=== PATIENT | male | born 1950 | race Caucasian/White ===

== ENCOUNTER 2021-07-23 09:34 | Observation (INO) ==
[~2021-07-23 09:34] MED LIST: ASPIRIN 325 MG TABLET PO ONE; DIAZEPAM 5 MG TABLET PO ONE; MAGNESIUM SULF RIDER 2 GM/50 ML PREMIX IV PRN; POTASSIUM CHLORIDE RIDER 10 MEQ/100 ML PREMIX IV PRN; diphenhydrAMINE CAP 25 MG CAPSULE PO ONE
[2021-07-23 10:14] LABS: Basophils % 0.8 % (0.0-0.8); Eosinophils # 0.4 10*3/uL (0.0-0.87); Eosinophils % 8.9 % (0.00-10.9); Hematocrit 48.2 VOL% (42.0-52.0); Hemoglobin 15.2 GM/DL (14.0-18.0); Immature Granulocytes % 0.4 %; Immature Granulocytes Absolute 0.02 #; Lymphocytes % 21.4 % (21.2-54.2); Mean Corpuscular HGB Conc 31.5 GM/DL (32-36); Mean Corpuscular Volume 89.4 FL (87-102); Mean Platelet Volume 10.8 FL (9.6-12.0); Monocytes % 11.9 % (1.7-12.7); Neutrophils % 56.6 % (38.7-73.9); Platelet Count 243 T/CUMM (130-400); Red Blood Count 5.39 MC/CUMM (3.8-5.5); White Blood Count 4.7 T/CUMM (4-12)
[2021-07-23 10:23] LABS: PT Patient Result 10.8 SECS (10.5-12.0)
[2021-07-23 10:32] LABS: Albumin 4.2 G/DL (3.4-5.0); Bilirubin,Total 0.4 MG/DL (0.20-1.00); Calcium 9.1 MG/DL (8.5-10.1); Osmolality,Calculated 278.5 MOS/KG (273-304); Potassium 3.6 MMOL/L (3.5-5.1); Total Protein 8.4 G/DL (6.4-8.2)
[2021-07-23] MEDS: SODIUM CHLORIDE 0.9% 1,000 ML IV SCH ×2 (10:40→21:59)
[2021-07-23] MEDS ORDERED: LIDOCAINE 1% 20 ML VIAL ONE (11:12)
[2021-07-23] MEDS ORDERED: HEPARIN/NACL 0.9% 2 UNITS/ML 3,000 UNIT/1,500 ML BAG IV ONE (11:12)
[2021-07-23] MEDS ORDERED: DIAZEPAM 5 MG TABLET ONE (11:21)
[2021-07-23] MEDS ORDERED: diphenhydrAMINE CAP 25 MG CAPSULE ONE (11:22)
[2021-07-23] MEDS ORDERED: ASPIRIN 325 MG TABLET ONE (11:22)
[2021-07-23] MEDS ORDERED: fentaNYL 100 MCG/2 ML VIAL ONE (12:39)
[2021-07-23] MEDS ORDERED: MIDAZOLAM 2 MG/2 ML VIAL ONE (12:39)
[2021-07-23] MEDS ORDERED: ZALEPLON 5 MG CAPSULE PO PRN (20:10)
[2021-07-24] MEDS: SODIUM CHLORIDE 0.9% 1,000 ML IV SCH (05:21)
[2021-07-24 06:45] LABS: Basophils % 0.6 % (0.0-0.8); Eosinophils # 0.5 10*3/uL (0.0-0.87); Eosinophils % 7.7 % (0.00-10.9); Hematocrit 44.1 VOL% (42.0-52.0); Hemoglobin 13.9 GM/DL (14.0-18.0); Lymphocytes # 1.3 10*3/uL (1.4-4.0); Lymphocytes % 20.2 % (21.2-54.2); Mean Corpuscular HGB Conc 31.5 GM/DL (32-36); Mean Corpuscular Volume 89.5 FL (87-102); Mean Platelet Volume 11.2 FL (9.6-12.0); Monocytes % 12.3 % (1.7-12.7); Neutrophils % 58.9 % (38.7-73.9); Platelet Count 203 T/CUMM (130-400); Red Blood Count 4.93 MC/CUMM (3.8-5.5); White Blood Count 6.2 T/CUMM (4-12)
[2021-07-24 07:12] LABS: Albumin 3.5 G/DL (3.4-5.0); Bilirubin,Total 0.4 MG/DL (0.20-1.00); Calcium 8.8 MG/DL (8.5-10.1); Osmolality,Calculated 279.5 MOS/KG (273-304); Potassium 4.8 MMOL/L (3.5-5.1); Total Protein 7.2 G/DL (6.4-8.2)
[2021-07-24] MEDS ORDERED: NITROGLYCERIN SL 0.4 MG TABLET SL PRN (08:51)
[2021-07-24] MEDS ORDERED: NON-FORMULARY MEDICATION (Famotidine-Ca Carb-Mag Hydrox [Pepcid Complete] 10-800-165 mg Ta PO SCH (09:00)
[2021-07-24] MEDS ORDERED: ENALAPRIL 5 MG TABLET PO SCH (09:00)
[2021-07-24] MEDS ORDERED: ASCORBIC ACID 500 MG TABLET PO SCH (09:00)
[2021-07-24] MEDS ORDERED: CHOLECALCIFEROL 1,000 UNIT TABLET PO SCH (09:00)
[2021-07-24] MEDS ORDERED: ASPIRIN EC 81 MG TABLET PO SCH (09:00)
[2021-07-24] MEDS ORDERED: METOPROLOL TARTRATE 25 MG TABLET PO SCH (09:00)
[2021-07-24 12:20] VITALS: BP 137/87
[2021-07-24] MEDS ORDERED: SIMVASTATIN 20 MG TABLET PO SCH (21:00)
== END 2021-07-24 13:00 | disposition home or self-care (01) ==
LOC: N.CL 09:34 → N.TELES 09:34 → N.CL 09:39 → N.TELES 14:20
PROVIDERS: ADMIT Internal Medicine Cardiovascular Disease; ATTEND Internal Medicine Cardiovascular Disease

== ENCOUNTER 2021-07-29 07:00 | Inpatient (IN) ==
[2021-07-29] MEDS ORDERED: DEXTROSE 10% 250 ML BAG IV PRN (09:49)
[2021-07-29] MEDS ORDERED: GLUCAGON 1 MG VIAL IM PRN (09:49)
[2021-07-29] MEDS ORDERED: CLORAZEPATE 3.75 MG TABLET PO PRN (09:55)
[2021-07-29] MEDS ORDERED: NITROGLYCERIN SL 0.4 MG TABLET SL PRN (09:56)
[2021-07-29] MEDS ORDERED: MORPHINE 4 MG/1 ML VIAL IV PRN (10:00)
[2021-07-29 11:12] LABS: Basophils % 0.6 % (0.0-0.8); Eosinophils # 0.5 10*3/uL (0.0-0.87); Eosinophils % 8.1 % (0.00-10.9); Hematocrit 43.4 VOL% (42.0-52.0); Hemoglobin 13.9 GM/DL (14.0-18.0); Immature Granulocytes % 0.3 %; Immature Granulocytes Absolute 0.02 #; Lymphocytes # 1.7 10*3/uL (1.4-4.0); Lymphocytes % 25.7 % (21.2-54.2); Mean Corpuscular Volume 87.9 FL (87-102); Mean Platelet Volume 11.1 FL (9.6-12.0); Monocytes % 12.6 % (1.7-12.7); Neutrophils % 52.7 % (38.7-73.9); Platelet Count 233 T/CUMM (130-400); Red Blood Count 4.94 MC/CUMM (3.8-5.5); Red Cell Distribution Width 13.6 % (9.3-17.3); White Blood Count 6.5 T/CUMM (4-12)
[2021-07-29 11:28] LABS: Alanine Aminotransferase 31 U/L (16-61); Albumin 3.5 G/DL (3.4-5.0); Alkaline Phosphatase 86 U/L (45-117); Aspartate Amino Transferase 30 U/L (0-37); Bilirubin,Total < 0.39 MG/DL (0.20-1.00); Blood Urea Nitrogen 24 MG/DL (7-18); Calcium 8.9 MG/DL (8.5-10.1); Carbon Dioxide 29 MMOL/L (21-32); Estimated Glom Filtration Rate 60 ML/MIN; Glucose 98 MG/DL (74-106); Osmolality,Calculated 276.8 MOS/KG (273-304); Potassium 4.1 MMOL/L (3.5-5.1); Sodium 137 MMOL/L (136-145); Total Protein 7.6 G/DL (6.4-8.2)
[2021-07-29 11:59] LABS: Anisocytosis Slight; Band Neutrophils 6 % (0-10); Eosinophils 11 % (0-10); Lymphocytes 27 % (20-55); Macrocytosis Slight; Platelet Estimate Normal; Segmented Neutrophils 45 % (50-85); Total Cells Counted 100
[2021-07-29 14:28] LABS: Arterial Base Excess iSTAT 2 MMOL/L (-2.5-2.5); Arterial Bicarbonate iSTAT 26.2 MMOL/L (20-26); Arterial O2 Saturation iSTAT 97 % (95-100); Arterial PCO2 iSTAT 39 MM HG (35-48); Arterial PO2 iSTAT 88 MM HG (80-95); Arterial Total CO2 iSTAT 27 MMO/L (23-27); Arterial pH iSTAT 7.437 (7.35-7.45)
[2021-07-29] MEDS: FAMOTIDINE 20 MG TABLET PO SCH (15:40)
[2021-07-29] MEDS: CHLORHEXIDINE 4% SOLN 118 ML BOTTLE TOP SCH ×2 (15:40→21:37)
[2021-07-29] MEDS ORDERED: ROSUVASTATIN 20 MG TABLET PO SCH (21:00)
[2021-07-29] MEDS: METOPROLOL TARTRATE 25 MG TABLET PO SCH (21:34)
[2021-07-29] MEDS: CHLORHEXIDINE 0.12% ORAL RINSE 60 ML BOTTLE SWISH/SPIT SCH (21:37)
[2021-07-30] MEDS ORDERED: VANCOMYCIN 1,000 MG VIAL ONE (04:16)
[2021-07-30] MEDS ORDERED: VANCOMYCIN 500 MG VIAL ONE (04:16)
[2021-07-30] MEDS ORDERED: PAPAVERINE 60 MG/2 ML VIAL ONE (04:16)
[2021-07-30] MEDS: CHLORHEXIDINE 4% SOLN 118 ML BOTTLE TOP SCH (04:30)
[2021-07-30] MEDS ORDERED: CEFUROXIME INJ 1,500 MG in SODIUM CHLORIDE 0.9% 100 ML IV ONE (05:00)
[2021-07-30] MEDS ORDERED: MIDAZOLAM 10 MG/2 ML VIAL ONE ×4 (06:06)
[2021-07-30] MEDS ORDERED: SUFentanil 250 MCG/5 ML AMP ONE ×2 (06:06→06:07)
[2021-07-30] MEDS ORDERED: PANTOPRAZOLE 40 MG VIAL IV ONE (06:30)
[2021-07-30] MEDS ORDERED: DIAZEPAM 5 MG TABLET PO ONE (06:30)
[2021-07-30 07:25] LABS: ABG Base Excess -0.5 MMOL/L (-2.5-2.5); ABG HCO3 24.1 MMOL/L (20-26); ABG Oxygen Saturation 99.7 % (95-100); ABG PCO2 33.4 MM HG (35-48); ABG PH 7.445 (7.35-7.45); ABG TCO2 20.3 MMOL/L (23-27); Glucose Heart Surgery 100 MG/DL (74-106); Hematocrit Heart Surgery 36.8 PERCENT (42-52); Hemoglobin Heart Surgery 11.9 G/DL (14.0-18.0); Ionized Calcium Arterial 1.14 MMOL/L (1.21-1.46); PCO2 Patient Temp Arterial 33.4 MMHG; PH Patient Temp Arterial 7.445; Patient Temperature 37 CELCIUS; Potassium Heart/CVR 3.7 MMOL/L (3.5-5.1); Sodium Heart/CVR 142 MMOL/L (135-145)
[2021-07-30] MEDS ORDERED: SEVOFLURANE 1 UNIT/15 MINUTE INH ONE (07:38)
[2021-07-30] MEDS ORDERED: CALCIUM CHLORIDE 1,000 MG/10 ML VIAL IV ONE ×2 (07:38→10:14)
[2021-07-30] MEDS ORDERED: SODIUM CHLORIDE 0.9% 1,000 ML IV ONE (07:38)
[2021-07-30] MEDS ORDERED: VECURONIUM 10 MG VIAL IV ONE (07:38)
[2021-07-30] MEDS ORDERED: PHENYLEPHRINE 1 MG/10 ML SYRINGE IV ONE (07:38)
[2021-07-30] MEDS ORDERED: LACTATED RINGERS 1,000 ML IV ONE ×2 (07:38→13:00)
[2021-07-30] MEDS ORDERED: AMINOCAPROIC ACID 5,000 MG/20 ML VIAL ONE (07:38)
[2021-07-30] MEDS ORDERED: LIDOCAINE 2% 5 ML VIAL ONE ×3 (07:38→10:14)
[2021-07-30] MEDS ORDERED: SODIUM CHLORIDE 0.9% 250 ML IV ONE (07:38)
[2021-07-30] MEDS ORDERED: PHENYLEPHRINE 10 MG/1 ML VIAL IV ONE (07:38)
[2021-07-30] MEDS ORDERED: SODIUM CHLORIDE 0.9% 100 ML IV ONE (07:38)
[2021-07-30 07:46] LABS: Mucus,Urine Occasional /LPF (Occasional); RBC,Urine 1 /HPF (0-4); Urine Appearance Clear (Clear); Urine Color Yellow (Yellow)
[2021-07-30 07:47] LABS: Bilirubin,Urine Negative (Negative); Blood, Urine Trace mg/dL (Negative); Glucose,Urine (UA) Negative (Negative); Ketones,Urine Negative (Negative); Nitrite,Urine Negative (Negative); Protein,Urine Negative; Urine Specific Gravity 1.025 (1.001-1.035); Urine Urobilinogen 0.2 EU/DL (<2.0)
[2021-07-30] MEDS: SODIUM CHLORIDE 0.9% 1,000 ML IV SCH ×2 (08:03→10:38)
[2021-07-30] MEDS ORDERED: METOPROLOL TARTRATE 5 MG/5 ML VIAL IV ONE (08:26)
[2021-07-30 08:47] LABS: Hematocrit Heart Surgery 23.6 PERCENT (42-52); Hemoglobin Heart Surgery 7.6 G/DL (14.0-18.0); PCO2 Patient Temp Venous 32.7 MM HG; PH Patient Temp Venous 7.468; PO2 Patient Temp Venous 36.9 MM HG; Potassium Heart/CVR 4.2 MMOL/L (3.5-5.1); VBG Base Excess 0.4 MEQ/L (0-4); VBG HCO3 24.6 MEQ/L (24-28); VBG Oxygen Saturation 82.2 %; VBG PCO2 37.8 MMHG (41-51); VBG PH 7.423; VBG PO2 45.3 MMHG (17-40); VBG Total CO2 23.2 MMOL/L
[2021-07-30] MEDS ORDERED: HEPARIN/NACL 0.9% 2 UNITS/ML 1,000 UNIT/500 ML BAG IV ONE (09:04)
[2021-07-30 09:16] LABS: Hematocrit Heart Surgery 24.6 PERCENT (42-52); Hemoglobin Heart Surgery 7.9 G/DL (14.0-18.0); PCO2 Patient Temp Venous 30.4 MM HG; PH Patient Temp Venous 7.491; PO2 Patient Temp Venous 35.8 MM HG; Potassium Heart/CVR 4.3 MMOL/L (3.5-5.1); VBG Base Excess 0.4 MEQ/L (0-4); VBG HCO3 24.5 MEQ/L (24-28); VBG Oxygen Saturation 79.9 %; VBG PCO2 33.5 MMHG (41-51); VBG PH 7.461; VBG PO2 41.1 MMHG (17-40); VBG Total CO2 22.3 MMOL/L
[2021-07-30 09:53] LABS: ABG Base Excess -1.3 MMOL/L (-2.5-2.5); ABG HCO3 23.4 MMOL/L (20-26); ABG Oxygen Saturation 99.5 % (95-100); ABG PCO2 32.2 MM HG (35-48); ABG PH 7.446 (7.35-7.45); ABG TCO2 20.4 MMOL/L (23-27); Glucose Heart Surgery 202 MG/DL (74-106); Hematocrit Heart Surgery 27.7 PERCENT (42-52); Hemoglobin Heart Surgery 8.9 G/DL (14.0-18.0); Ionized Calcium Arterial 1.16 MMOL/L (1.21-1.46); PCO2 Patient Temp Arterial 32.2 MMHG; PH Patient Temp Arterial 7.446; Patient Temperature 37 CELCIUS; Potassium Heart/CVR 4.1 MMOL/L (3.5-5.1); Sodium Heart/CVR 134 MMOL/L (135-145)
[2021-07-30] MEDS ORDERED: EPINEPHrine 1 MG/ML VIAL ONE (10:03)
[2021-07-30] MEDS ORDERED: AMIODARONE 150 MG/3 ML VIAL ONE ×2 (10:03→11:32)
[2021-07-30] MEDS ORDERED: ALBUMIN 25% 25 GM/100 ML VIAL IV ONE (10:08)
[2021-07-30] MEDS ORDERED: MAGNESIUM SULFATE 5 GM/10 ML VIAL IV ONE (10:08)
[2021-07-30] MEDS ORDERED: PROTAMINE SULFATE 250 MG/25 ML VIAL IV ONE (10:08)
[2021-07-30] MEDS ORDERED: MANNITOL 100 GM/500 ML BAG IV ONE (10:08)
[2021-07-30] MEDS ORDERED: methylPREDNISolone SOD SUC 1,000 MG/8 ML VIAL ONE (10:08)
[2021-07-30] MEDS ORDERED: DEXTROSE 5% KCL 20 MEQ 20 MEQ/1,000 ML BAG IV ONE (10:08)
[2021-07-30] MEDS ORDERED: FUROSEMIDE 20 MG/2 ML VIAL ONE (10:09)
[2021-07-30] MEDS ORDERED: PROTAMINE SULFATE 50 MG/5 ML VIAL IV ONE ×2 (10:09→16:17)
[2021-07-30] MEDS ORDERED: HEPARIN 10,000 UNIT/10 ML VIAL ONE (10:09)
[2021-07-30] MEDS ORDERED: SODIUM BICARBONATE 50 MEQ/50 ML VIAL IV ONE ×2 (10:09→11:03)
[2021-07-30] MEDS ORDERED: THROMBIN TOPICAL (RECOMBINANT) 5,000 UNIT VIAL TOP ONE (10:33)
[2021-07-30] MEDS ORDERED: ALBUMIN 5% 12.5 GM/250 ML VIAL IV ONE (10:36)
[2021-07-30] MEDS: FAMOTIDINE 20 MG TABLET PO SCH (10:38)
[2021-07-30] MEDS: METOPROLOL TARTRATE 25 MG TABLET PO SCH (10:38)
[2021-07-30] MEDS: CHLORHEXIDINE 0.12% ORAL RINSE 60 ML BOTTLE SWISH/SPIT SCH ×2 (10:38→20:59)
[2021-07-30 11:05] LABS: ABG Base Excess 0.2 MMOL/L (-2.5-2.5); ABG HCO3 24.2 MMOL/L (20-26); ABG Oxygen Saturation 98.9 % (95-100); ABG PCO2 36.8 MM HG (35-48); ABG PH 7.436 (7.35-7.45); ABG PO2 455.9 MM HG (80-95); ABG TCO2 25.3 MMOL/L (23-27); Glucose Heart Surgery 191 MG/DL (74-106); Ionized Calcium Arterial 1.26 MMOL/L (1.21-1.46); PCO2 Patient Temp Arterial 36.8 MMHG; PH Patient Temp Arterial 7.436; PO2 Patient Temp Arterial 455.9 MM HG; Patient Temperature 37 CELCIUS; Potassium Heart/CVR 3.6 MMOL/L (3.5-5.1); Sodium Heart/CVR 138 MMOL/L (135-145)
[2021-07-30] MEDS ORDERED: SODIUM CHLORIDE 0.45% 1,000 ML IV SCH ×2 (11:06)
[2021-07-30] MEDS ORDERED: MIDAZOLAM 10 MG/2 ML VIAL IV PRN (11:06)
[2021-07-30] MEDS ORDERED: ONDANSETRON 4 MG/2 ML VIAL IV PRN (11:06)
[2021-07-30] MEDS ORDERED: NITROPRUSSIDE 100 MG in DEXTROSE 5% 250 ML IV PRN (11:06)
[2021-07-30] MEDS ORDERED: MIDAZOLAM 2 MG/2 ML VIAL IV PRN (11:06)
[2021-07-30] MEDS ORDERED: VECURONIUM 10 MG VIAL IV PRN ×2 (11:06)
[2021-07-30] MEDS ORDERED: INSULIN REGULAR DRIP 100 ML IV SCH (11:06)
[2021-07-30] MEDS ORDERED: CALCIUM CHLORIDE 1,000 MG/10 ML SYRINGE IV PRN (11:06)
[2021-07-30] MEDS ORDERED: PHENYLEPHRINE DRIP 40 MG/250 ML PREMIX IV PRN (11:06)
[2021-07-30] MEDS ORDERED: DEXTROSE 10% 250 ML BAG IV PRN ×2 (11:06)
[2021-07-30] MEDS ORDERED: ACETAMINOPHEN 650 MG SUPP RECTAL PRN (11:06)
[2021-07-30] MEDS ORDERED: POTASSIUM CHLORIDE RIDER 10 MEQ/100 ML PREMIX IV PRN (11:06)
[2021-07-30] MEDS ORDERED: CHLORHEXIDINE 4% SOLN 118 ML BOTTLE TOP PRN (11:06)
[2021-07-30] MEDS ORDERED: INSULIN REGULAR 100 UNIT/ML IV PRN (11:06)
[2021-07-30] MEDS ORDERED: MAGNESIUM SULF RIDER 2 GM/50 ML PREMIX IV PRN (11:06)
[2021-07-30] MEDS ORDERED: INSULIN REGULAR 100 UNIT/ML IV ONE (11:06)
[2021-07-30] MEDS ORDERED: MAGNESIUM SULF RIDER 4 GM/100 ML PREMIX IV PRN (11:06)
[2021-07-30] MEDS ORDERED: AMIODARONE 450 MG/9 ML VIAL IV ONE (11:29)
[2021-07-30] MEDS ORDERED: AMIODARONE INJ 450 MG in DEXTROSE 5% 241 ML IV SCH (11:30)
[2021-07-30] MEDS: POTASSIUM CHLORIDE RIDER 20 MEQ/100 ML PREMIX IV PRN ×6 (11:45→23:32)
[2021-07-30 11:56] LABS: ABG Base Excess 0.9 MMOL/L (-2.5-2.5); ABG HCO3 25.2 MMOL/L (20-26); ABG Oxygen Saturation 99.2 % (95-100); ABG PCO2 33.9 MM HG (35-48); ABG PH 7.463 (7.35-7.45); ABG TCO2 22.2 MMOL/L (23-27); Glucose Heart Surgery 186 MG/DL (74-106); Hematocrit Heart Surgery 29.2 PERCENT (42-52); Hemoglobin Heart Surgery 9.4 G/DL (14.0-18.0); Potassium Heart/CVR 3.7 MMOL/L (3.5-5.1)
[2021-07-30 12:11] LABS: INR 1.1; PT Patient Result 12.4 SECS (10.5-12.0)
[2021-07-30 12:21] LABS: Albumin 3.6 G/DL (3.4-5.0); Bilirubin,Total 0.8 MG/DL (0.20-1.00); Calcium 9.1 MG/DL (8.5-10.1); Osmolality,Calculated 287.3 MOS/KG (273-304); Total Protein 6.1 G/DL (6.4-8.2)
[2021-07-30 12:27] LABS: CKMB % 3.6 %
[2021-07-30] MEDS: ALBUMIN 5% 12.5 GM/250 ML VIAL IV PRN ×2 (12:30→21:07)
[2021-07-30 12:38] LABS: High Sensitive Troponin I* 2403.9 ng/L (0-78)
[2021-07-30] MEDS: LACTATED RINGERS 250 ML IV PRN ×5 (13:00→17:44)
[2021-07-30 14:54] LABS: ABG Base Excess 2.5 MMOL/L (-2.5-2.5); ABG HCO3 26.7 MMOL/L (20-26); ABG PCO2 35.9 MM HG (35-48); ABG PH 7.469 (7.35-7.45); ABG TCO2 24.1 MMOL/L (23-27); Glucose Heart Surgery 164 MG/DL (74-106); Hematocrit Heart Surgery 26.7 PERCENT (42-52); Hemoglobin Heart Surgery 8.6 G/DL (14.0-18.0); Potassium Heart/CVR 3.7 MMOL/L (3.5-5.1)
[2021-07-30] MEDS: KETOROLAC 30 MG/1 ML VIAL IV SCH ×2 (15:41→21:08)
[2021-07-30] MEDS: CEFUROXIME INJ 1,500 MG in SODIUM CHLORIDE 0.9% 100 ML IV SCH (17:44)
[2021-07-30] MEDS: MORPHINE 10 MG/1 ML VIAL IV PRN ×2 (17:46→23:55)
[2021-07-30 17:56] LABS: ABG Base Excess 1.2 MMOL/L (-2.5-2.5); ABG HCO3 25.5 MMOL/L (20-26); ABG Oxygen Saturation 98.9 % (95-100); ABG PCO2 45.6 MM HG (35-48); ABG PH 7.377 (7.35-7.45); ABG TCO2 24.5 MMOL/L (23-27); Glucose Heart Surgery 167 MG/DL (74-106); Hematocrit Heart Surgery 29.8 PERCENT (42-52); Hemoglobin Heart Surgery 9.6 G/DL (14.0-18.0); Potassium Heart/CVR 4.8 MMOL/L (3.5-5.1)
[2021-07-30] MEDS: AMIODARONE INJ 450 MG in DEXTROSE 5% 241 ML IV SCH (18:21)
[2021-07-30 19:36] LABS: CKMB % 6.2 %
[2021-07-30 19:38] LABS: High Sensitive Troponin I* 10465.5 ng/L (0-78)
[2021-07-30 20:20] LABS: Basophils % 0.1 % (0.0-0.8); Eosinophils # 0.2 10*3/uL (0.0-0.87); Eosinophils % 2.3 % (0.00-10.9); Hematocrit 28.6 VOL% (42.0-52.0); Hemoglobin 9.3 GM/DL (14.0-18.0); Immature Granulocytes % 0.4 %; Immature Granulocytes Absolute 0.03 #; Lymphocytes # 0.8 10*3/uL (1.4-4.0); Mean Corpuscular HGB Conc 32.5 GM/DL (32-36); Mean Platelet Volume 12.5 FL (9.6-12.0); Neutrophils % 78.2 % (38.7-73.9); Platelet Count 148 T/CUMM (130-400); Red Blood Count 3.25 MC/CUMM (3.8-5.5); Red Cell Distribution Width 13.7 % (9.3-17.3); White Blood Count 6.8 T/CUMM (4-12)
[2021-07-30 20:37] LABS: ABG Base Excess 0.9 MMOL/L (-2.5-2.5); ABG HCO3 25.2 MMOL/L (20-26); ABG PCO2 44.9 MM HG (35-48); ABG PH 7.376 (7.35-7.45); ABG TCO2 24.1 MMOL/L (23-27); Glucose Heart Surgery 182 MG/DL (74-106); Hematocrit Heart Surgery 29.6 PERCENT (42-52); Hemoglobin Heart Surgery 9.6 G/DL (14.0-18.0)
[2021-07-30] MEDS: INSULIN REGULAR 100 UNIT/ML SUBCUT SCH (21:18)
[2021-07-30] MEDS: FUROSEMIDE 40 MG/4 ML VIAL IV PRN (22:15)
[2021-07-30 23:11] LABS: ABG Base Excess 0.9 MMOL/L (-2.5-2.5); ABG HCO3 25.2 MMOL/L (20-26); ABG Oxygen Saturation 98.9 % (95-100); ABG PCO2 44.1 MM HG (35-48); ABG PH 7.382 (7.35-7.45); Glucose Heart Surgery 206 MG/DL (74-106); Hematocrit Heart Surgery 29.8 PERCENT (42-52); Hemoglobin Heart Surgery 9.6 G/DL (14.0-18.0); Potassium Heart/CVR 4.2 MMOL/L (3.5-5.1)
[2021-07-31] MEDS: INSULIN REGULAR 100 UNIT/ML SUBCUT SCH ×3 (00:09→07:37)
[2021-07-31 00:47] LABS: ABG Base Excess 0.8 MMOL/L (-2.5-2.5); ABG HCO3 25.2 MMOL/L (20-26); ABG Oxygen Saturation 98.8 % (95-100); ABG PH 7.383 (7.35-7.45); ABG TCO2 23.4 MMOL/L (23-27); Glucose Heart Surgery 209 MG/DL (74-106); Hematocrit Heart Surgery 35.1 PERCENT (42-52); Hemoglobin Heart Surgery 11.4 G/DL (14.0-18.0); Potassium Heart/CVR 4.3 MMOL/L (3.5-5.1)
[2021-07-31 01:56] LABS: ABG Base Excess 0.8 MMOL/L (-2.5-2.5); ABG HCO3 25.2 MMOL/L (20-26); ABG Oxygen Saturation 98.6 % (95-100); ABG PCO2 44.5 MM HG (35-48); ABG PH 7.378 (7.35-7.45); ABG TCO2 24.1 MMOL/L (23-27); Glucose Heart Surgery 191 MG/DL (74-106); Hematocrit Heart Surgery 29.1 PERCENT (42-52); Hemoglobin Heart Surgery 9.4 G/DL (14.0-18.0); Potassium Heart/CVR 4.1 MMOL/L (3.5-5.1)
[2021-07-31 03:59] LABS: ABG Base Excess 1.7 MMOL/L (-2.5-2.5); ABG HCO3 25.9 MMOL/L (20-26); ABG Oxygen Saturation 98.8 % (95-100); ABG PCO2 47.1 MM HG (35-48); ABG PH 7.372 (7.35-7.45); ABG TCO2 25.3 MMOL/L (23-27); Glucose Heart Surgery 168 MG/DL (74-106); Potassium Heart/CVR 3.9 MMOL/L (3.5-5.1)
[2021-07-31] MEDS: KETOROLAC 30 MG/1 ML VIAL IV SCH ×2 (03:59→10:21)
[2021-07-31 04:01] LABS: Hematocrit 27.3 VOL% (42.0-52.0); Hemoglobin 8.9 GM/DL (14.0-18.0); Immature Granulocytes % 0.5 %; Immature Granulocytes Absolute 0.05 #; Lymphocytes # 0.7 10*3/uL (1.4-4.0); Lymphocytes % 6.3 % (21.2-54.2); Mean Corpuscular HGB Conc 32.6 GM/DL (32-36); Mean Corpuscular Volume 84.5 FL (87-102); Mean Platelet Volume 11.4 FL (9.6-12.0); Monocytes % 8.3 % (1.7-12.7); Neutrophils % 84.9 % (38.7-73.9); Platelet Count 206 T/CUMM (130-400); Red Blood Count 3.23 MC/CUMM (3.8-5.5); Red Cell Distribution Width 15.7 % (9.3-17.3); White Blood Count 10.7 T/CUMM (4-12)
[2021-07-31] MEDS: POTASSIUM CHLORIDE RIDER 20 MEQ/100 ML PREMIX IV PRN (04:25)
[2021-07-31 04:35] LABS: CKMB % 7.8 %; High Sensitive Troponin I* 23511.3 ng/L (0-78)
[2021-07-31] MEDS: CEFUROXIME INJ 1,500 MG in SODIUM CHLORIDE 0.9% 100 ML IV SCH (05:50)
[2021-07-31 06:33] LABS: Albumin 3.6 G/DL (3.4-5.0); Bilirubin,Direct 0.13 MG/DL (0.0-0.20); Bilirubin,Total 0.5 MG/DL (0.20-1.00); Calcium 8.3 MG/DL (8.5-10.1); Osmolality,Calculated 288.3 MOS/KG (273-304); Potassium 3.9 MMOL/L (3.5-5.1); Total Protein 6.4 G/DL (6.4-8.2)
[2021-07-31] MEDS: FUROSEMIDE 40 MG/4 ML VIAL IV PRN (06:42)
[2021-07-31] MEDS: ALBUMIN 5% 12.5 GM/250 ML VIAL IV PRN (07:38)
[2021-07-31] MEDS ORDERED: ALUMINUM/MAGNES/SIMETH MAX STR 30 ML UDCUP PO PRN (09:27)
[2021-07-31] MEDS ORDERED: NITROGLYCERIN SL 0.4 MG TABLET SL PRN (09:27)
[2021-07-31] MEDS ORDERED: MAGNESIUM HYDROXIDE SUSP 30 ML UDCUP PO PRN (09:27)
[2021-07-31] MEDS ORDERED: GLUCAGON 1 MG VIAL IM PRN ×2 (09:27)
[2021-07-31] MEDS ORDERED: MAGNESIUM SULF RIDER 2 GM/50 ML PREMIX IV PRN (09:27)
[2021-07-31] MEDS ORDERED: MAGNESIUM SULF RIDER 4 GM/100 ML PREMIX IV PRN (09:27)
[2021-07-31] MEDS ORDERED: DEXTROSE 50% 25 GM/50 ML VIAL IV PRN (09:27)
[2021-07-31] MEDS ORDERED: ONDANSETRON 4 MG/2 ML VIAL IV PRN (09:27)
[2021-07-31] MEDS ORDERED: ZALEPLON 5 MG CAPSULE PO PRN (09:27)
[2021-07-31] MEDS ORDERED: ACETAMINOPHEN 325 MG TABLET PO PRN (09:27)
[2021-07-31] MEDS ORDERED: SODIUM CHLOR 0.45% KCL 20 MEQ 20 MEQ/1,000 ML BAG IV SCH (09:30)
[2021-07-31] MEDS ORDERED: DEXTROSE 10% 250 ML BAG IV PRN (09:39)
[2021-07-31] MEDS: AMIODARONE 200 MG TABLET PO SCH ×2 (09:56→20:27)
[2021-07-31] MEDS: AMIODARONE INJ 450 MG in DEXTROSE 5% 241 ML IV SCH (10:21)
[2021-07-31] MEDS: CHLORHEXIDINE 0.12% ORAL RINSE 60 ML BOTTLE SWISH/SPIT SCH ×2 (10:21→20:27)
[2021-07-31] MEDS: oxyCODONE/ACETAMINOPHEN 5-325 MG TABLET PO PRN (13:05)
[2021-08-01] MEDS: MORPHINE 4 MG/1 ML VIAL IV PRN ×2 (03:00→20:23)
[2021-08-01 04:55] LABS: Basophils % 0.1 % (0.0-0.8); Hematocrit 31.6 VOL% (42.0-52.0); Immature Granulocytes % 0.5 %; Immature Granulocytes Absolute 0.07 #; Lymphocytes # 0.9 10*3/uL (1.4-4.0); Lymphocytes % 6.1 % (21.2-54.2); Mean Corpuscular HGB Conc 31.6 GM/DL (32-36); Mean Corpuscular Volume 86.6 FL (87-102); Mean Platelet Volume 12.3 FL (9.6-12.0); Monocytes % 8.3 % (1.7-12.7); Platelet Count 187 T/CUMM (130-400); Red Blood Count 3.65 MC/CUMM (3.8-5.5); Red Cell Distribution Width 16.2 % (9.3-17.3)
[2021-08-01 05:25] LABS: Albumin 3.5 G/DL (3.4-5.0); Bilirubin,Direct 0.14 MG/DL (0.0-0.20); Bilirubin,Indirect 0.3 MG/DL (0.0-1.0); Bilirubin,Total 0.4 MG/DL (0.20-1.00); CKMB % 4.8 %; Calcium 8.1 MG/DL (8.5-10.1); High Sensitive Troponin I* 13947.2 ng/L (0-78); Osmolality,Calculated 287.4 MOS/KG (273-304); Potassium 4.2 MMOL/L (3.5-5.1); Total Protein 6.5 G/DL (6.4-8.2)
[2021-08-01] MEDS ORDERED: FUROSEMIDE 40 MG/4 ML VIAL IV ONE (06:00)
[2021-08-01] MEDS: AMIODARONE 200 MG TABLET PO SCH ×2 (08:00→20:21)
[2021-08-01] MEDS: DOCUSATE SODIUM 100 MG CAPSULE PO SCH (08:00)
[2021-08-01] MEDS: CHLORHEXIDINE 0.12% ORAL RINSE 60 ML BOTTLE SWISH/SPIT SCH ×2 (08:00→20:22)
[2021-08-01] MEDS: PANTOPRAZOLE 40 MG TABLET PO SCH (08:00)
[2021-08-01] MEDS: ROSUVASTATIN 20 MG TABLET PO SCH (08:00)
[2021-08-01] MEDS: ASPIRIN EC 81 MG TABLET PO SCH (08:00)
[2021-08-01] MEDS: CHOLECALCIFEROL 1,000 UNIT TABLET PO SCH (08:00)
[2021-08-01] MEDS: FERROUS SULFATE 325 MG TABLET PO SCH (08:00)
[2021-08-01] MEDS: ASCORBIC ACID 500 MG TABLET PO SCH (08:00)
[2021-08-01] MEDS: oxyCODONE/ACETAMINOPHEN 5-325 MG TABLET PO PRN (14:00)
[2021-08-02 05:10] LABS: Basophils % 0.1 % (0.0-0.8); Hematocrit 30.7 VOL% (42.0-52.0); Hemoglobin 9.8 GM/DL (14.0-18.0); Immature Granulocytes % 0.7 %; Lymphocytes # 1.6 10*3/uL (1.4-4.0); Lymphocytes % 10.9 % (21.2-54.2); Mean Corpuscular HGB Conc 31.9 GM/DL (32-36); Mean Corpuscular Volume 85.8 FL (87-102); Mean Platelet Volume 12.9 FL (9.6-12.0); Monocytes % 10.6 % (1.7-12.7); Neutrophils % 77.7 % (38.7-73.9); Platelet Count 207 T/CUMM (130-400); Red Blood Count 3.58 MC/CUMM (3.8-5.5)
[2021-08-02 05:41] LABS: Albumin 3.1 G/DL (3.4-5.0); Bilirubin,Direct 0.15 MG/DL (0.0-0.20); Bilirubin,Indirect 0.4 MG/DL (0.0-1.0); Bilirubin,Total 0.5 MG/DL (0.20-1.00); CKMB % 4.7 %; Calcium 8.4 MG/DL (8.5-10.1); Osmolality,Calculated 281.8 MOS/KG (273-304); Potassium 3.8 MMOL/L (3.5-5.1); Total Protein 6.5 G/DL (6.4-8.2)
[2021-08-02] MEDS: oxyCODONE/ACETAMINOPHEN 5-325 MG TABLET PO PRN ×2 (05:46→18:55)
[2021-08-02 05:50] LABS: High Sensitive Troponin I* 18403.4 ng/L (0-78)
[2021-08-02] MEDS: ASCORBIC ACID 500 MG TABLET PO SCH (09:18)
[2021-08-02] MEDS: PANTOPRAZOLE 40 MG TABLET PO SCH (09:18)
[2021-08-02] MEDS: DOCUSATE SODIUM 100 MG CAPSULE PO SCH (09:18)
[2021-08-02] MEDS: ROSUVASTATIN 20 MG TABLET PO SCH (09:18)
[2021-08-02] MEDS: AMIODARONE 200 MG TABLET PO SCH ×2 (09:18→22:04)
[2021-08-02] MEDS: POTASSIUM CHLORIDE 20 MEQ TABLET PO PRN ×2 (09:18→09:19)
[2021-08-02] MEDS: CHOLECALCIFEROL 1,000 UNIT TABLET PO SCH (09:18)
[2021-08-02] MEDS: ASPIRIN EC 81 MG TABLET PO SCH (09:18)
[2021-08-02] MEDS ORDERED: METOPROLOL TARTRATE 25 MG TABLET PO SCH (09:30)
[2021-08-02] MEDS: FERROUS SULFATE 325 MG TABLET PO SCH (10:29)
[2021-08-02] MEDS: CHLORHEXIDINE 0.12% ORAL RINSE 60 ML BOTTLE SWISH/SPIT SCH ×2 (10:30→22:05)
[2021-08-02] MEDS ORDERED: METOPROLOL TARTRATE 25 MG TABLET PO ONE (11:59)
[2021-08-02] MEDS: cefTRIAXone 1,000 MG in SODIUM CHLORIDE 0.9% 100 ML IV SCH (14:33)
[2021-08-02] MEDS: ALBUTEROL/IPRATROPIUM 3 ML NEB RESP TX SCH ×2 (14:45→20:03)
[2021-08-02] MEDS: METOPROLOL TARTRATE 25 MG TABLET PO SCH (22:04)
[2021-08-03] MEDS: ALBUTEROL/IPRATROPIUM 3 ML NEB RESP TX SCH ×6 (00:10→19:50)
[2021-08-03 05:09] LABS: Basophils % 0.2 % (0.0-0.8); Eosinophils % 0.2 % (0.00-10.9); Hematocrit 32.8 VOL% (42.0-52.0); Hemoglobin 10.1 GM/DL (14.0-18.0); Immature Granulocytes % 1.1 %; Immature Granulocytes Absolute 0.12 #; Lymphocytes # 1.9 10*3/uL (1.4-4.0); Lymphocytes % 17.6 % (21.2-54.2); Mean Corpuscular HGB Conc 30.8 GM/DL (32-36); Mean Corpuscular Volume 88.2 FL (87-102); Mean Platelet Volume 12.5 FL (9.6-12.0); Monocytes % 12.3 % (1.7-12.7); Neutrophils % 68.6 % (38.7-73.9); Platelet Count 249 T/CUMM (130-400); Red Blood Count 3.72 MC/CUMM (3.8-5.5); Red Cell Distribution Width 16.1 % (9.3-17.3); White Blood Count 10.8 T/CUMM (4-12)
[2021-08-03 05:30] LABS: Bilirubin,Total 0.5 MG/DL (0.20-1.00); CKMB % 3.2 %; Calcium 8.3 MG/DL (8.5-10.1); Potassium 3.8 MMOL/L (3.5-5.1); Total Protein 6.6 G/DL (6.4-8.2)
[2021-08-03 05:37] LABS: High Sensitive Troponin I* 22211.6 ng/L (0-78)
[2021-08-03] MEDS: oxyCODONE/ACETAMINOPHEN 5-325 MG TABLET PO PRN ×2 (06:37→20:33)
[2021-08-03] MEDS: POTASSIUM CHLORIDE 20 MEQ TABLET PO PRN (09:17)
[2021-08-03] MEDS: ROSUVASTATIN 20 MG TABLET PO SCH (09:17)
[2021-08-03] MEDS: ASPIRIN EC 81 MG TABLET PO SCH (09:17)
[2021-08-03] MEDS: ASCORBIC ACID 500 MG TABLET PO SCH (09:18)
[2021-08-03] MEDS: AMIODARONE 200 MG TABLET PO SCH ×2 (09:18→20:30)
[2021-08-03] MEDS: CHOLECALCIFEROL 1,000 UNIT TABLET PO SCH (09:18)
[2021-08-03] MEDS: DOCUSATE SODIUM 100 MG CAPSULE PO SCH (09:18)
[2021-08-03] MEDS: PANTOPRAZOLE 40 MG TABLET PO SCH (09:18)
[2021-08-03] MEDS: METOPROLOL TARTRATE 25 MG TABLET PO SCH ×2 (09:19→20:31)
[2021-08-03] MEDS: FERROUS SULFATE 325 MG TABLET PO SCH (09:20)
[2021-08-03] MEDS: CHLORHEXIDINE 0.12% ORAL RINSE 60 ML BOTTLE SWISH/SPIT SCH ×2 (11:07→22:49)
[2021-08-03] MEDS: cefTRIAXone 1,000 MG in SODIUM CHLORIDE 0.9% 100 ML IV SCH (11:17)
[2021-08-04] MEDS: ALBUTEROL/IPRATROPIUM 3 ML NEB RESP TX SCH ×3 (00:10→07:02)
[2021-08-04 05:07] LABS: Basophils % 0.1 % (0.0-0.8); Eosinophils # 0.2 10*3/uL (0.0-0.87); Eosinophils % 2.4 % (0.00-10.9); Hematocrit 32.9 VOL% (42.0-52.0); Hemoglobin 10.3 GM/DL (14.0-18.0); Immature Granulocytes % 1.2 %; Immature Granulocytes Absolute 0.11 #; Lymphocytes # 1.8 10*3/uL (1.4-4.0); Lymphocytes % 19.9 % (21.2-54.2); Mean Corpuscular HGB Conc 31.3 GM/DL (32-36); Mean Corpuscular Volume 86.4 FL (87-102); Mean Platelet Volume 11.6 FL (9.6-12.0); Monocytes % 13.2 % (1.7-12.7); NRBC # 0.02 10*3/uL; Neutrophils % 63.2 % (38.7-73.9); Platelet Count 279 T/CUMM (130-400); Red Blood Count 3.81 MC/CUMM (3.8-5.5); Red Cell Distribution Width 15.9 % (9.3-17.3)
[2021-08-04 05:27] LABS: Albumin 2.9 G/DL (3.4-5.0); Bilirubin,Direct 0.16 MG/DL (0.0-0.20); Bilirubin,Indirect 0.4 MG/DL (0.0-1.0); Bilirubin,Total 0.6 MG/DL (0.20-1.00); CKMB % 2.3 %; Calcium 8.7 MG/DL (8.5-10.1); Osmolality,Calculated 276.8 MOS/KG (273-304); Potassium 3.9 MMOL/L (3.5-5.1); Total Protein 6.7 G/DL (6.4-8.2)
[2021-08-04 05:32] LABS: High Sensitive Troponin I* 16092.8 ng/L (0-78)
[2021-08-04 09:02] VITALS: BP 116/71
[2021-08-04] MEDS: ASPIRIN EC 81 MG TABLET PO SCH (09:32)
[2021-08-04] MEDS: ASCORBIC ACID 500 MG TABLET PO SCH (09:32)
[2021-08-04] MEDS: AMIODARONE 200 MG TABLET PO SCH (09:32)
[2021-08-04] MEDS: FERROUS SULFATE 325 MG TABLET PO SCH (09:32)
[2021-08-04] MEDS: DOCUSATE SODIUM 100 MG CAPSULE PO SCH (09:33)
[2021-08-04] MEDS: METOPROLOL TARTRATE 25 MG TABLET PO SCH (09:33)
[2021-08-04] MEDS: CHOLECALCIFEROL 1,000 UNIT TABLET PO SCH (09:33)
[2021-08-04] MEDS: ROSUVASTATIN 20 MG TABLET PO SCH (09:33)
[2021-08-04] MEDS: PANTOPRAZOLE 40 MG TABLET PO SCH (09:33)
[2021-08-04] MEDS: CHLORHEXIDINE 0.12% ORAL RINSE 60 ML BOTTLE SWISH/SPIT SCH (09:36)
[2021-08-04] MEDS: cefTRIAXone 1,000 MG in SODIUM CHLORIDE 0.9% 100 ML IV SCH (10:33)
== END 2021-08-04 12:05 | disposition home health service (06) | DRG 236 ==
LOC: N.3E 10:42 → N.CVR 07-30 11:02 → N.ICU 07-31 15:37 → N.TELES 08-01 16:13